=== PATIENT | male | born 1970 | race Caucasian/White ===

== ENCOUNTER 2017-08-02 09:13 | Inpatient (IN) | payer OTHER, MEDICAID ==
[2017-08-02] MEDS: morphine 4 MG/ML VIAL IV (09:39)
[2017-08-02] MEDS: ONDANSETRON 4 MG INJ IV (09:39)
[2017-08-02] MEDS: SOD CHLORIDE 0.9% 500 ML IV (09:39)
[2017-08-02 10:25] LABS: WHITE BLOOD COUNT 19.4 10^3/ul (4.8-10.8)
[2017-08-02 10:25] LABS: ABNORMAL IP MESSAGE 1; HEMATOCRIT 12.1 % (42.0-52.0); MEAN CORPUSCULAR HEMOGLOBIN 28.9 pg (29.0-33.0); MEAN CORPUSCULAR HGB CONC 32.2 g/dl (32.0-37.0); MEAN CORPUSCULAR VOLUME 89.6 fl (82.0-101.0); MEAN PLATELET VOLUME 11.3 fl (7.4-10.4); NUCLEATED RED BLOOD CELLS% 0.2 /100WBC (0.0-0.0); PLATELET COUNT 240 10^3/UL (140-415); POSITIVE DIFF @See below; RED BLOOD COUNT 1.35 10^6/ul (4.70-6.10); RED CELL DISTRIBUTION WIDTH 21.7 % (11.5-14.5)
[2017-08-02 10:33] LABS: ADD MAN DIFF? YES; HEMOGLOBIN 3.9 g/dl (14.0-18.0)
[2017-08-02] MEDS: SOD CHLORIDE 0.9% 250 ML IV (10:39)
[2017-08-02 10:42] LABS: INR 5.16; PROTIME 49.4 Sec (11.9-14.9); PT RATIO 3.9
[2017-08-02 10:43] LABS: PARTIAL THROMBOPLASTIN TIME 48.9 Sec (25.0-35.0)
[2017-08-02 10:44] LABS: LACTIC ACID 9.8 mmol/L (0.5-2.0)
[2017-08-02 10:56] LABS: ALANINE AMINOTRANSFERASE 57 IU/L (13-69); ALBUMIN/GLOBULIN RATIO 0.57; ALKALINE PHOSPHATASE 99 IU/L (42-121); ANION GAP 23 (8-16); ASPARTATE AMINO TRANSFERASE 196 IU/L (15-46); BILIRUBIN,INDIRECT 0.4 mg/dl (0-1.1); BILIRUBIN,TOTAL 0.4 mg/dl (0.2-1.3); BLOOD UREA NITROGEN 71 mg/dl (7-20); CALCIUM 7.9 mg/dl (8.4-10.2); CARBON DIOXIDE 13 mmol/L (21-31); CHLORIDE 107 mmol/L (97-110); CREATININE 4.76 mg/dl (0.61-1.24); GLUCOSE 111 mg/dl (70-220); POTASSIUM 5.3 mmol/L (3.5-5.1); SODIUM 138 mmol/L (135-144); TOTAL PROTEIN 5.5 g/dl (6.1-8.1)
[2017-08-02 10:59] LABS: ANISOCYTOSIS 2+ (0-0); BAND NEUTROPHILS #M 3.1 10^3/ul (0.0-0.6); BAND NEUTROPHILS % (M) 16 % (0-4); LYMPHOCYTES #M 2.1 10^3/ul (0.8-2.9); LYMPHOCYTES % (M) 11 % (15-51); PLATELET ESTIMATE NORMAL; POIKILOCYTOSIS 1+ (0-0); POLYCHROMASIA 1+ (0-0); SEG NEUT #M 14.8 10^3/ul (1.6-7.5); SEGMENTED NEUTROPHILS (M) % 73 % (39-77); SMUDGE%M 3 % (0-0); TARGET CELLS 1+ (0-0)
[2017-08-02] MEDS: LACTATED RINGER'S 2,480 ML IV (11:00)
[2017-08-02] MEDS: CEFEPIME 2GM/50 ML (PMX) 50 ML IVPB (11:02)
[2017-08-02 11:07] LABS: TROPONIN-I 0.043 ng/ml (0.00-0.12)
[2017-08-02] MEDS: VANCOMYCIN 1 GM (PMX) 250 ML IVPB (11:30)
[2017-08-02] MEDS: PHYTONADIONE 10 MG in DEXTROSE 5% 50 ML IVPB (11:41)
[2017-08-02 11:50] LABS: IMMEDIATE SPIN CROSSMATCH 1
[2017-08-02 12:33] LABS: LACTIC ACID 9.6 mmol/L (0.5-2.0)
[2017-08-02] MEDS: HUMAN PROTHROMBIN COMPLX IV (12:56)
[2017-08-02] MEDS: EVAC CONTAINER IV (12:56)
[2017-08-02] MEDS: IODIXANOL LOCM 100 ML BTL (13:43)
[2017-08-02] MEDS: SOD CHLORIDE 0.9% 100 ML (13:43)
[2017-08-02] MEDS: IOHEXOL 300MG/ML 150 ML BTL (13:43)
[2017-08-02 15:09] LABS: PATH REVIEW CH
[2017-08-02 17:30] LABS: ADD MAN DIFF? NO
[2017-08-02 17:31] LABS: WHITE BLOOD COUNT 18.3 10^3/ul (4.8-10.8)
[2017-08-02 17:31] LABS: ABNORMAL IP MESSAGE 1; HEMATOCRIT 17.7 % (42.0-52.0); MEAN CORPUSCULAR HEMOGLOBIN 29.5 pg (29.0-33.0); MEAN CORPUSCULAR HGB CONC 34.5 g/dl (32.0-37.0); MEAN CORPUSCULAR VOLUME 85.5 fl (82.0-101.0); NUCLEATED RED BLOOD CELLS% 0.2 /100WBC (0.0-0.0); PLATELET COUNT 178 10^3/UL (140-415); POSITIVE DIFF @See below; RED BLOOD COUNT 2.07 10^6/ul (4.70-6.10); RED CELL DISTRIBUTION WIDTH 18.5 % (11.5-14.5)
[2017-08-02 17:37] LABS: HEMOGLOBIN 6.1 g/dl (14.0-18.0)
[2017-08-02 18:09] LABS: ANISOCYTOSIS 1+ (0-0); BAND NEUTROPHILS #M 2.7 10^3/ul (0.0-0.6); BAND NEUTROPHILS % (M) 15 % (0-4); BURR CELLS 2+ (0-0); GIANT THROMBO% (M) 3 % (0-0); HYPOCHROMASIA 2+ (0-0); LYMPHOCYTES #M 1.4 10^3/ul (0.8-2.9); LYMPHOCYTES % (M) 8 % (15-51); MICROCYTOSIS 1+ (0-0); MONOCYTES % (M) 6 % (0-11); PLATELET ESTIMATE NORMAL; POIKILOCYTOSIS 2+ (0-0); SEG NEUT #M 13.5 10^3/ul (1.6-7.5); SEGMENTED NEUTROPHILS (M) % 71 % (39-77); SMUDGE%M 2 % (0-0)
[2017-08-02 21:26] LABS: ADD MAN DIFF? NO
[2017-08-02 21:29] LABS: WHITE BLOOD COUNT 20.4 10^3/ul (4.8-10.8)
[2017-08-02 21:29] LABS: ABNORMAL IP MESSAGE 1; BASOPHILS % 0.2 % (0.0-2.0); HEMATOCRIT 21.4 % (42.0-52.0); HEMOGLOBIN 7.3 g/dl (14.0-18.0); LYMPHOCYTES # 1.5 10^3/ul (0.8-2.9); LYMPHOCYTES % 7.1 % (15.0-51.0); MEAN CORPUSCULAR HGB CONC 34.1 g/dl (32.0-37.0); MEAN CORPUSCULAR VOLUME 84.9 fl (82.0-101.0); MEAN PLATELET VOLUME 10.7 fl (7.4-10.4); MONOCYTE # 1.9 10^3/ul (0.3-0.9); MONOCYTES % 9.1 % (0.0-11.0); NEUTROPHIL # 16.9 10^3/ul (1.6-7.5); NUCLEATED RED BLOOD CELLS% 0.2 /100WBC (0.0-0.0); PLATELET COUNT 215 10^3/UL (140-415); POSITIVE DIFF @See below; RED BLOOD COUNT 2.52 10^6/ul (4.70-6.10); RED CELL DISTRIBUTION WIDTH 18.6 % (11.5-14.5)
[2017-08-02 21:45] LABS: INR 1.67; PARTIAL THROMBOPLASTIN TIME 37.6 Sec (25.0-35.0); PT RATIO 1.6
[2017-08-02 21:46] LABS: CREATINE KINASE 98 IU/L (23-200)
[2017-08-02 21:48] LABS: PHOSPHORUS 6.9 mg/dl (2.5-4.9)
[2017-08-02 21:48] LABS: ALANINE AMINOTRANSFERASE 71 IU/L (13-69); ALBUMIN 2.3 g/dl (3.3-4.9); ALKALINE PHOSPHATASE 92 IU/L (42-121); ANION GAP 21 (8-16); ASPARTATE AMINO TRANSFERASE 239 IU/L (15-46); BILIRUBIN,INDIRECT 1.1 mg/dl (0-1.1); BILIRUBIN,TOTAL 1.9 mg/dl (0.2-1.3); BLOOD UREA NITROGEN 73 mg/dl (7-20); CARBON DIOXIDE 14 mmol/L (21-31); CHLORIDE 107 mmol/L (97-110); GLUCOSE 102 mg/dl (70-220); MAGNESIUM 2.1 mg/dl (1.7-2.5); POTASSIUM 5.5 mmol/L (3.5-5.1); SODIUM 136 mmol/L (135-144); TOTAL PROTEIN 6.1 g/dl (6.1-8.1)
[2017-08-02 21:59] LABS: CK INDEX 3.1; TROPONIN-I 0.045 ng/ml (0.00-0.12)
[2017-08-02 22:04] LABS: CK-MB 3.01 ng/ml (0.0-2.4)
[2017-08-02 22:29] LABS: HEPATITIS B SURFACE ANTIGEN NEGATIVE (NEGATIVE)
[2017-08-02 22:46] LABS: HEPATITIS B SURFACE ANTIBODY NEGATIVE (NEGATIVE)
[2017-08-02 22:47] LABS: HEPATITIS B CORE ANTIBODY NEGATIVE (NEGATIVE); HEPATITIS C VIRAL ANTIBODY NEGATIVE (NEGATIVE)
[2017-08-03] MEDS: ACETAMINOPHEN 1000MG/100ML IV 100 ML IVPB (01:17)
[2017-08-03] MEDS: ONDANSETRON 4 MG INJ IV ×3 (01:17→23:31)
[2017-08-03] MEDS: FENTAnyl 50 MCG/ML VIAL IV ×4 (01:29→23:26)
[2017-08-03 02:19] LABS: HEMOGLOBIN 9.1 g/dl (14.0-18.0)
[2017-08-03 03:51] LABS: ADD MAN DIFF? NO
[2017-08-03 04:13] LABS: CREATINE KINASE 75 IU/L (23-200)
[2017-08-03 04:15] LABS: ALANINE AMINOTRANSFERASE 75 IU/L (13-69); ALBUMIN 2.4 g/dl (3.3-4.9); ALKALINE PHOSPHATASE 97 IU/L (42-121); ANION GAP 21 (8-16); ASPARTATE AMINO TRANSFERASE 241 IU/L (15-46); BLOOD UREA NITROGEN 76 mg/dl (7-20); CALCIUM 8.2 mg/dl (8.4-10.2); CARBON DIOXIDE 16 mmol/L (21-31); CHLORIDE 106 mmol/L (97-110); CREATININE 4.71 mg/dl (0.61-1.24); GLUCOSE 116 mg/dl (70-220); MAGNESIUM 2.1 mg/dl (1.7-2.5); PHOSPHORUS 7.6 mg/dl (2.5-4.9); POTASSIUM 5.5 mmol/L (3.5-5.1); SODIUM 137 mmol/L (135-144); TOTAL PROTEIN 6.4 g/dl (6.1-8.1)
[2017-08-03 04:16] LABS: PT RATIO 1.6
[2017-08-03 04:17] LABS: PARTIAL THROMBOPLASTIN TIME 32.8 Sec (25.0-35.0)
[2017-08-03 04:22] LABS: BASOPHIL # 0.1 10^3/ul (0.0-0.1); BASOPHILS % 0.2 % (0.0-2.0); HEMATOCRIT 25.6 % (42.0-52.0); LYMPHOCYTES % 4.9 % (15.0-51.0); MEAN CORPUSCULAR HEMOGLOBIN 28.9 pg (29.0-33.0); MEAN CORPUSCULAR HGB CONC 35.2 g/dl (32.0-37.0); MEAN CORPUSCULAR VOLUME 82.3 fl (82.0-101.0); MEAN PLATELET VOLUME 10.5 fl (7.4-10.4); MONOCYTE # 1.5 10^3/ul (0.3-0.9); MONOCYTES % 7.1 % (0.0-11.0); NEUTROPHIL # 17.8 10^3/ul (1.6-7.5); NEUTROPHILS % 87.1 % (39.0-77.0); NUCLEATED RED BLOOD CELLS% 0.2 /100WBC (0.0-0.0); PLATELET COUNT 201 10^3/UL (140-415); RED BLOOD COUNT 3.11 10^6/ul (4.70-6.10); RED CELL DISTRIBUTION WIDTH 18.6 % (11.5-14.5)
[2017-08-03 04:22] LABS: WHITE BLOOD COUNT 20.5 10^3/ul (4.8-10.8)
[2017-08-03 04:23] LABS: LACTIC ACID 2.8 mmol/L (0.5-2.0)
[2017-08-03 04:25] LABS: CK INDEX 3.5; TROPONIN-I 0.048 ng/ml (0.00-0.12)
[2017-08-03 04:29] LABS: INR 1.68; PROTIME 20.1 Sec (11.9-14.9)
[2017-08-03 04:30] LABS: CK-MB 2.64 ng/ml (0.0-2.4)
[2017-08-03] MEDS ORDERED: VANCOMYCIN IV PER PHARMACY XX (12:00)
[2017-08-03] MEDS: CEFEPIME 1GM/50 ML (PMX) 50 ML IVPB (13:02)
[2017-08-03] MEDS: FAMOTIDINE 20 MG INJ IV (13:02)
[2017-08-03] MEDS: LACTATED RINGER'S 1,000 ML IV ×2 (13:03→23:37)
[2017-08-03 13:23] LABS: HEMATOCRIT 29.4 % (42.0-52.0); HEMOGLOBIN 10.1 g/dl (14.0-18.0)
[2017-08-03 13:52] LABS: LACTIC ACID 2.6 mmol/L (0.5-2.0)
[2017-08-03 15:35] LABS: HAAIG REFLEX REFLEX FILED
[2017-08-03] MEDS: DESMOPRESSIN 20 MCG in SOD CHLORIDE 0.9% 50 ML IVPB (15:35)
[2017-08-03 16:02] LABS: PLATELET COUNT 206 10^3/UL (140-415)
[2017-08-03 16:15] LABS: HEPATITIS B SURFACE ANTIGEN NEGATIVE (NEGATIVE)
[2017-08-03 16:33] LABS: HEPATITIS B CORE ANTIBODY NEGATIVE (NEGATIVE); HEPATITIS C VIRAL ANTIBODY NEGATIVE (NEGATIVE)
[2017-08-03 16:34] LABS: INR 1.48; PROTIME 18.2 Sec (11.9-14.9); PT RATIO 1.4
[2017-08-03 16:35] LABS: ADD UMIC YES; PARTIAL THROMBOPLASTIN TIME 36.6 Sec (25.0-35.0); UR ASCORBIC ACID NEGATIVE (NEGATIVE); UR BILIRUBIN (Dip) NEGATIVE (NEGATIVE); UR BLOOD (Dip) 1+ mg/dL (NEGATIVE); UR CLARITY SLIGHTLY CLOUDY (CLEAR); UR COLOR YELLOW (YELLOW); UR GLUCOSE (Dip) NEGATIVE (NEGATIVE); UR KETONES (Dip) NEGATIVE (NEGATIVE); UR LEUKOCYTE ESTERASE (Dip) NEGATIVE Leu/ul (NEGATIVE); UR MUCUS FEW /HPF (NONE SEEN); UR NITRITE (Dip) NEGATIVE (NEGATIVE); UR RBC 1 /HPF (0-5); UR SPECIFIC GRAVITY (Dip) 1.021 (1.003-1.030); UR TOTAL PROTEIN (Dip) NEGATIVE (NEGATIVE); UR UROBILINOGEN (Dip) NEGATIVE (NEGATIVE); UR WBC 3 /HPF (0-5)
[2017-08-03 16:36] LABS: THROMBIN TIME 19.3 SEC (13.8-19.1)
[2017-08-03 16:41] LABS: CREATININE,URINE RANDOM 96.54 mg/dl (20-370)
[2017-08-03 16:45] LABS: LACTIC ACID 2.5 mmol/L (0.5-2.0)
[2017-08-03 16:46] LABS: SODIUM,URINE RANDOM < 5 mmol/L (30-90)
[2017-08-03 16:59] LABS: PROTEIN/CREAT RATIO 0.16 RATIO
[2017-08-03 17:20] LABS: D-DIMER > 10000.00 ng/ml (<460)
[2017-08-03 17:24] LABS: FIBRIN SPLIT PRODUCT >10 and <40 ug/ml (<10)
[2017-08-03 17:27] LABS: HEMATOCRIT 28.1 % (42.0-52.0); HEMOGLOBIN 9.8 g/dl (14.0-18.0)
[2017-08-03 17:50] LABS: INR 1.42; PROTIME 17.6 Sec (11.9-14.9); PT RATIO 1.4
[2017-08-03 19:09] LABS: OSMOLALITY,URINE 355 mOsm/kg (250-1200)
[2017-08-03 19:39] LABS: HEMATOCRIT 29.3 % (42.0-52.0)
[2017-08-03] MEDS ORDERED: SOD CHLORIDE 0.9% 500 ML IV (19:55)
[2017-08-03] MEDS: SOD CHLORIDE 0.9% 250 ML IV* ×2 (20:00→23:30)
[2017-08-03 20:06] LABS: LACTIC ACID 3.1 mmol/L (0.5-2.0)
[2017-08-03] MEDS: NA BICARBONATE 8.4% 50 ML SYG IV (21:26)
[2017-08-03] MEDS: ALBUMIN HUMAN 25% 50 ML IV (21:28)
[2017-08-03 22:29] LABS: HEPATITIS B SURFACE ANTIBODY NEGATIVE (NEGATIVE)
[2017-08-03 23:09] LABS: IMMEDIATE SPIN CROSSMATCH 1 6
[2017-08-04 00:27] LABS: HEMOGLOBIN 9.3 g/dl (14.0-18.0)
[2017-08-04 00:31] LABS: LACTIC ACID 2.2 mmol/L (0.5-2.0)
[2017-08-04 01:06] LABS: HEPATITIS B SURFACE ANTIGEN NEGATIVE (NEGATIVE)
[2017-08-04] MEDS: ALBUMIN HUMAN 25% 50 ML IV ×2 (03:45→11:46)
[2017-08-04 04:57] LABS: ADD MAN DIFF? NO
[2017-08-04 05:01] LABS: WHITE BLOOD COUNT 15.5 10^3/ul (4.8-10.8)
[2017-08-04 05:01] LABS: ABNORMAL IP MESSAGE 1; BASOPHILS % 0.1 % (0.0-2.0); HEMATOCRIT 25.5 % (42.0-52.0); HEMOGLOBIN 8.8 g/dl (14.0-18.0); LYMPHOCYTES % 6.2 % (15.0-51.0); MEAN CORPUSCULAR HGB CONC 34.5 g/dl (32.0-37.0); MEAN CORPUSCULAR VOLUME 84.2 fl (82.0-101.0); MEAN PLATELET VOLUME 10.6 fl (7.4-10.4); MONOCYTE # 1.5 10^3/ul (0.3-0.9); MONOCYTES % 9.8 % (0.0-11.0); NEUTROPHIL # 12.9 10^3/ul (1.6-7.5); NEUTROPHILS % 83.3 % (39.0-77.0); NUCLEATED RED BLOOD CELLS # 0.1 10^3/ul (0.0-0.0); NUCLEATED RED BLOOD CELLS% 0.3 /100WBC (0.0-0.0); PLATELET COUNT 194 10^3/UL (140-415); POSITIVE DIFF @See below; RED BLOOD COUNT 3.03 10^6/ul (4.70-6.10); RED CELL DISTRIBUTION WIDTH 18.8 % (11.5-14.5)
[2017-08-04 05:21] LABS: LACTIC ACID 1.8 mmol/L (0.5-2.0)
[2017-08-04 05:26] LABS: VANCOMYCIN,RANDOM 9.3 ug/ml
[2017-08-04 05:29] LABS: ALANINE AMINOTRANSFERASE 70 IU/L (13-69); ALBUMIN 2.9 g/dl (3.3-4.9); ALBUMIN/GLOBULIN RATIO 0.74; ALKALINE PHOSPHATASE 100 IU/L (42-121); ANION GAP 19 (8-16); ASPARTATE AMINO TRANSFERASE 152 IU/L (15-46); BILIRUBIN,INDIRECT 0.7 mg/dl (0-1.1); BILIRUBIN,TOTAL 1.2 mg/dl (0.2-1.3); BLOOD UREA NITROGEN 86 mg/dl (7-20); CALCIUM 8.4 mg/dl (8.4-10.2); CARBON DIOXIDE 18 mmol/L (21-31); CHLORIDE 108 mmol/L (97-110); CREATININE 5.27 mg/dl (0.61-1.24); GLUCOSE 120 mg/dl (70-220); POTASSIUM 5.2 mmol/L (3.5-5.1); SODIUM 140 mmol/L (135-144); TOTAL PROTEIN 6.8 g/dl (6.1-8.1)
[2017-08-04] MEDS: BUMETANIDE 1 MG INJ IV ×2 (05:31→18:00)
[2017-08-04 05:35] LABS: PHOSPHORUS 7.7 mg/dl (2.5-4.9)
[2017-08-04 05:42] LABS: INR 1.35; PROTIME 16.9 Sec (11.9-14.9); PT RATIO 1.3
[2017-08-04 05:46] LABS: MAGNESIUM 2.2 mg/dl (1.7-2.5)
[2017-08-04] MEDS: LEVOTHYROXINE 75 MCG TAB PO (06:23)
[2017-08-04] MEDS: ONDANSETRON 4 MG INJ IV (06:36)
[2017-08-04] MEDS: LACTATED RINGER'S 1,000 ML IV ×3 (08:00→21:43)
[2017-08-04 09:06] LABS: LACTIC ACID 1.6 mmol/L (0.5-2.0)
[2017-08-04] MEDS ORDERED: HEPARIN 1000 UNITS/ML 10 ML INJ ×2 (09:57→23:17)
[2017-08-04] MEDS: VANCOMYCIN 1 GM 250 ML IVPB (10:40)
[2017-08-04] MEDS: FAMOTIDINE 20 MG INJ IV (10:44)
[2017-08-04] MEDS: CEFEPIME 1GM/50 ML (PMX) 50 ML IVPB (12:22)
[2017-08-04 13:15] LABS: HEMATOCRIT 25.7 % (42.0-52.0); HEMOGLOBIN 8.8 g/dl (14.0-18.0)
[2017-08-04 18:55] LABS: HEMATOCRIT 25.4 % (42.0-52.0); HEMOGLOBIN 8.6 g/dl (14.0-18.0)
[2017-08-04] MEDS: LIDOCAINE 1% (MPF) 5 ML VIAL (20:45)
[2017-08-04] MEDS ORDERED: HEPARIN 1000 UNITS/ML 10 ML INJ CATHETER (23:30)
[2017-08-04] MEDS: HEPARIN 1000 UNITS/ML 10 ML INJ CATHETER (23:32)
[2017-08-05] MEDS: BUMETANIDE 1 MG INJ IV (05:06)
[2017-08-05 05:45] LABS: ADD MAN DIFF? NO
[2017-08-05 05:51] LABS: EOSINOPHILS % 0.2 % (0.0-7.0); HEMATOCRIT 24.2 % (42.0-52.0); HEMOGLOBIN 8.4 g/dl (14.0-18.0); LYMPHOCYTES # 1.2 10^3/ul (0.8-2.9); LYMPHOCYTES % 8.9 % (15.0-51.0); MEAN CORPUSCULAR HEMOGLOBIN 29.5 pg (29.0-33.0); MEAN CORPUSCULAR HGB CONC 34.7 g/dl (32.0-37.0); MEAN CORPUSCULAR VOLUME 84.9 fl (82.0-101.0); MEAN PLATELET VOLUME 10.4 fl (7.4-10.4); MONOCYTE # 1.3 10^3/ul (0.3-0.9); MONOCYTES % 9.9 % (0.0-11.0); NEUTROPHIL # 10.4 10^3/ul (1.6-7.5); NEUTROPHILS % 80.5 % (39.0-77.0); PLATELET COUNT 154 10^3/UL (140-415); RED BLOOD COUNT 2.85 10^6/ul (4.70-6.10); RED CELL DISTRIBUTION WIDTH 19.9 % (11.5-14.5)
[2017-08-05] MEDS: LEVOTHYROXINE 75 MCG TAB PO (06:20)
[2017-08-05] MEDS: LACTATED RINGER'S 1,000 ML IV (06:34)
[2017-08-05 06:38] LABS: ALANINE AMINOTRANSFERASE 56 IU/L (13-69); ALBUMIN 2.5 g/dl (3.3-4.9); ALBUMIN/GLOBULIN RATIO 0.69; ALKALINE PHOSPHATASE 94 IU/L (42-121); ANION GAP 15 (8-16); ASPARTATE AMINO TRANSFERASE 100 IU/L (15-46); BILIRUBIN,TOTAL 1.4 mg/dl (0.2-1.3); BLOOD UREA NITROGEN 67 mg/dl (7-20); CALCIUM 8.1 mg/dl (8.4-10.2); CARBON DIOXIDE 25 mmol/L (21-31); CHLORIDE 105 mmol/L (97-110); CREATININE 4.12 mg/dl (0.61-1.24); GLUCOSE 88 mg/dl (70-220); POTASSIUM 3.9 mmol/L (3.5-5.1); SODIUM 141 mmol/L (135-144); TOTAL PROTEIN 6.1 g/dl (6.1-8.1)
[2017-08-05] MEDS: FAMOTIDINE 20 MG INJ IV (09:09)
[2017-08-05 17:21] LABS: PHOSPHORUS 5.8 mg/dl (2.5-4.9)
[2017-08-05] MEDS: MANNITOL 25% 50 ML INJ IV* (21:38)
[2017-08-06] MEDS: ONDANSETRON 4 MG INJ IV (02:21)
[2017-08-06 05:47] LABS: ADD MAN DIFF? NO
[2017-08-06 05:58] LABS: BASOPHILS % 0.1 % (0.0-2.0); EOSINOPHILS # 0.1 10^3/ul (0.0-0.5); EOSINOPHILS % 0.9 % (0.0-7.0); HEMATOCRIT 29.3 % (42.0-52.0); HEMOGLOBIN 9.9 g/dl (14.0-18.0); LYMPHOCYTES # 0.8 10^3/ul (0.8-2.9); MEAN CORPUSCULAR HEMOGLOBIN 29.5 pg (29.0-33.0); MEAN CORPUSCULAR HGB CONC 33.8 g/dl (32.0-37.0); MEAN CORPUSCULAR VOLUME 87.2 fl (82.0-101.0); MEAN PLATELET VOLUME 10.7 fl (7.4-10.4); MONOCYTE # 1.4 10^3/ul (0.3-0.9); MONOCYTES % 10.6 % (0.0-11.0); NEUTROPHIL # 11.1 10^3/ul (1.6-7.5); NEUTROPHILS % 81.8 % (39.0-77.0); PLATELET COUNT 159 10^3/UL (140-415); RED BLOOD COUNT 3.36 10^6/ul (4.70-6.10); RED CELL DISTRIBUTION WIDTH 20.3 % (11.5-14.5)
[2017-08-06 05:58] LABS: WHITE BLOOD COUNT 13.5 10^3/ul (4.8-10.8)
[2017-08-06 06:08] LABS: PROTIME 17.4 Sec (11.9-14.9); PT RATIO 1.4
[2017-08-06 06:09] LABS: PARTIAL THROMBOPLASTIN TIME 37.9 Sec (25.0-35.0)
[2017-08-06 06:27] LABS: ALANINE AMINOTRANSFERASE 55 IU/L (13-69); ALBUMIN 2.5 g/dl (3.3-4.9); ALBUMIN/GLOBULIN RATIO 0.62; ALKALINE PHOSPHATASE 103 IU/L (42-121); ANION GAP 16 (8-16); ASPARTATE AMINO TRANSFERASE 110 IU/L (15-46); BILIRUBIN,INDIRECT 1.6 mg/dl (0-1.1); BILIRUBIN,TOTAL 2.3 mg/dl (0.2-1.3); BLOOD UREA NITROGEN 52 mg/dl (7-20); CARBON DIOXIDE 25 mmol/L (21-31); CHLORIDE 103 mmol/L (97-110); GLUCOSE 99 mg/dl (70-220); POTASSIUM 3.7 mmol/L (3.5-5.1); SODIUM 140 mmol/L (135-144); TOTAL PROTEIN 6.5 g/dl (6.1-8.1)
[2017-08-06] MEDS: LEVOTHYROXINE 75 MCG TAB PO (06:55)
[2017-08-06] MEDS: AMIODARONE 200 MG TAB PO (09:00)
[2017-08-06 10:17] LABS: PHOSPHORUS 4.4 mg/dl (2.5-4.9)
[2017-08-06] MEDS: SPIRONOLACTONE 25 MG TAB PO (12:46)
[2017-08-06] MEDS: MIDODRINE 5 MG TAB NGT ×2 (14:54→18:14)
[2017-08-06 17:21] LABS: PTH CALCIUM 9.6 mg/dL (8.6-10.3)
[2017-08-06] MEDS: FUROSEMIDE 40 MG TAB PO (18:13)
[2017-08-06] MEDS ORDERED: SODIUM CHLORIDE 0.9% 1L BAG IV (19:00)
[2017-08-06] MEDS ORDERED: ALBUMIN HUMAN 25% 50 ML IV (19:00)
[2017-08-07 05:41] LABS: INR 1.42; PROTIME 17.6 Sec (11.9-14.9); PT RATIO 1.4
[2017-08-07 05:42] LABS: PARTIAL THROMBOPLASTIN TIME 36.2 Sec (25.0-35.0)
[2017-08-07] MEDS: LEVOTHYROXINE 75 MCG TAB PO (06:36)
[2017-08-07] MEDS: FUROSEMIDE 40 MG TAB PO ×2 (06:36→18:06)
[2017-08-07 07:46] LABS: PTH INTACT 66 pg/mL (14-64)
[2017-08-07] MEDS: AMIODARONE 200 MG TAB PO (09:08)
[2017-08-07] MEDS: MIDODRINE 5 MG TAB NGT ×3 (09:08→17:02)
[2017-08-07] MEDS: SPIRONOLACTONE 25 MG TAB PO (09:09)
[2017-08-07 11:40] LABS: ANION GAP 15 (8-16); BLOOD UREA NITROGEN 55 mg/dl (7-20); CALCIUM 7.7 mg/dl (8.4-10.2); CARBON DIOXIDE 25 mmol/L (21-31); CHLORIDE 103 mmol/L (97-110); GLUCOSE 83 mg/dl (70-220); POTASSIUM 3.8 mmol/L (3.5-5.1); SODIUM 139 mmol/L (135-144)
[2017-08-07] MEDS: HEPARIN 1000 UNITS/ML 10 ML INJ CATHETER (15:50)
[2017-08-08 05:56] LABS: ADD MAN DIFF? NO
[2017-08-08 06:12] LABS: ABNORMAL IP MESSAGE 1; BASOPHILS % 0.1 % (0.0-2.0); EOSINOPHILS # 0.2 10^3/ul (0.0-0.5); EOSINOPHILS % 1.4 % (0.0-7.0); HEMATOCRIT 29.7 % (42.0-52.0); LYMPHOCYTES # 1.1 10^3/ul (0.8-2.9); LYMPHOCYTES % 6.9 % (15.0-51.0); MEAN CORPUSCULAR HEMOGLOBIN 29.7 pg (29.0-33.0); MEAN CORPUSCULAR HGB CONC 33.7 g/dl (32.0-37.0); MEAN CORPUSCULAR VOLUME 88.1 fl (82.0-101.0); MEAN PLATELET VOLUME 10.6 fl (7.4-10.4); MONOCYTE # 1.6 10^3/ul (0.3-0.9); MONOCYTES % 10.1 % (0.0-11.0); NEUTROPHIL # 12.9 10^3/ul (1.6-7.5); NEUTROPHILS % 80.9 % (39.0-77.0); PLATELET COUNT 176 10^3/UL (140-415); POSITIVE DIFF @See below; RED BLOOD COUNT 3.37 10^6/ul (4.70-6.10); RED CELL DISTRIBUTION WIDTH 19.9 % (11.5-14.5)
[2017-08-08] MEDS: LEVOTHYROXINE 75 MCG TAB PO (06:30)
[2017-08-08] MEDS: FUROSEMIDE 40 MG TAB PO ×2 (06:31→17:14)
[2017-08-08 06:47] LABS: ANION GAP 15 (8-16); BLOOD UREA NITROGEN 44 mg/dl (7-20); CALCIUM 8.1 mg/dl (8.4-10.2); CARBON DIOXIDE 23 mmol/L (21-31); CHLORIDE 105 mmol/L (97-110); CREATININE 3.18 mg/dl (0.61-1.24); GLUCOSE 80 mg/dl (70-220); MAGNESIUM 2.1 mg/dl (1.7-2.5); POTASSIUM 4.2 mmol/L (3.5-5.1); SODIUM 139 mmol/L (135-144)
[2017-08-08 07:00] LABS: INR 1.38; PROTIME 17.2 Sec (11.9-14.9); PT RATIO 1.3
[2017-08-08 07:01] LABS: PARTIAL THROMBOPLASTIN TIME 39.1 Sec (25.0-35.0)
[2017-08-08] MEDS: SPIRONOLACTONE 25 MG TAB PO (08:57)
[2017-08-08] MEDS: AMIODARONE 200 MG TAB PO (08:58)
[2017-08-08] MEDS: MIDODRINE 5 MG TAB NGT ×3 (10:52→17:14)
[2017-08-08] MEDS: DIATR MEGLU/DIATRIZOATE SODIUM 120 ML BTL (11:13)
[2017-08-08 18:36] LABS: HAPTOGLOBIN 106 mg/dL (43-212)
[2017-08-08] MEDS ORDERED: ALBUMIN HUMAN 25% 50 ML IV (19:30)
[2017-08-08] MEDS ORDERED: SODIUM CHLORIDE 0.9% 1L BAG IV (19:30)
[2017-08-08] MEDS: ONDANSETRON 4 MG INJ IV (23:14)
[2017-08-08] MEDS: PANTOPRAZOLE 40 MG INJ IV (23:53)
[2017-08-09 01:02] LABS: ADD MAN DIFF? NO
[2017-08-09 01:12] LABS: ABNORMAL IP MESSAGE 1; BASOPHILS % 0.1 % (0.0-2.0); HEMOGLOBIN 9.1 g/dl (14.0-18.0); LYMPHOCYTES # 1.1 10^3/ul (0.8-2.9); LYMPHOCYTES % 5.5 % (15.0-51.0); MEAN CORPUSCULAR HEMOGLOBIN 28.6 pg (29.0-33.0); MEAN CORPUSCULAR HGB CONC 32.5 g/dl (32.0-37.0); MEAN CORPUSCULAR VOLUME 88.1 fl (82.0-101.0); MEAN PLATELET VOLUME 10.8 fl (7.4-10.4); MONOCYTE # 1.7 10^3/ul (0.3-0.9); MONOCYTES % 8.2 % (0.0-11.0); NEUTROPHIL # 17.2 10^3/ul (1.6-7.5); NEUTROPHILS % 85.5 % (39.0-77.0); PLATELET COUNT 183 10^3/UL (140-415); POSITIVE DIFF @See below; RED BLOOD COUNT 3.18 10^6/ul (4.70-6.10); RED CELL DISTRIBUTION WIDTH 20.3 % (11.5-14.5)
[2017-08-09 01:12] LABS: WHITE BLOOD COUNT 20.1 10^3/ul (4.8-10.8)
[2017-08-09 01:25] LABS: INR 1.54; PROTIME 18.8 Sec (11.9-14.9); PT RATIO 1.5
[2017-08-09 01:26] LABS: PARTIAL THROMBOPLASTIN TIME 35.7 Sec (25.0-35.0)
[2017-08-09 05:38] LABS: ABNORMAL IP MESSAGE 1; ADD MAN DIFF? NO; BASOPHILS % 0.1 % (0.0-2.0); EOSINOPHILS % 0.1 % (0.0-7.0); HEMATOCRIT 27.4 % (42.0-52.0); LYMPHOCYTES # 1.2 10^3/ul (0.8-2.9); MEAN CORPUSCULAR HEMOGLOBIN 29.2 pg (29.0-33.0); MEAN CORPUSCULAR HGB CONC 32.8 g/dl (32.0-37.0); MEAN PLATELET VOLUME 11.7 fl (7.4-10.4); MONOCYTE # 1.7 10^3/ul (0.3-0.9); MONOCYTES % 8.3 % (0.0-11.0); NEUTROPHIL # 16.8 10^3/ul (1.6-7.5); NEUTROPHILS % 84.5 % (39.0-77.0); PLATELET COUNT 149 10^3/UL (140-415); POSITIVE DIFF @See below; RED BLOOD COUNT 3.08 10^6/ul (4.70-6.10); RED CELL DISTRIBUTION WIDTH 20.3 % (11.5-14.5)
[2017-08-09 05:38] LABS: WHITE BLOOD COUNT 19.9 10^3/ul (4.8-10.8)
[2017-08-09 06:00] LABS: INR 1.61; PROTIME 19.5 Sec (11.9-14.9); PT RATIO 1.5
[2017-08-09] MEDS: PANTOPRAZOLE 40 MG INJ IV ×2 (06:01→17:29)
[2017-08-09] MEDS: LEVOTHYROXINE 75 MCG TAB PO (06:01)
[2017-08-09] MEDS: FUROSEMIDE 40 MG TAB PO ×2 (06:01→20:09)
[2017-08-09] MEDS ORDERED: VITAMIN A & D 5 GM OINT PACKET TOP (06:08)
[2017-08-09 06:15] LABS: ANION GAP 21 (8-16); BLOOD UREA NITROGEN 66 mg/dl (7-20); CALCIUM 8.1 mg/dl (8.4-10.2); CARBON DIOXIDE 21 mmol/L (21-31); CHLORIDE 107 mmol/L (97-110); CREATININE 4.01 mg/dl (0.61-1.24); GLUCOSE 117 mg/dl (70-220); MAGNESIUM 2.3 mg/dl (1.7-2.5); PHOSPHORUS 4.5 mg/dl (2.5-4.9); POTASSIUM 4.6 mmol/L (3.5-5.1); SODIUM 144 mmol/L (135-144)
[2017-08-09] MEDS: SPIRONOLACTONE 25 MG TAB PO (08:43)
[2017-08-09] MEDS: AMIODARONE 200 MG TAB PO (08:43)
[2017-08-09] MEDS: MIDODRINE 5 MG TAB NGT ×3 (08:43→16:57)
[2017-08-09] MEDS ORDERED: LIDOCAINE 1% (MPF) 5 ML VIAL (16:45)
[2017-08-09 17:01] LABS: FLD PMN% 39.3 %; FLD RBC 244000 /uL; FLD WBC 884 /cmm
[2017-08-09 17:27] LABS: FLD CLARITY BLOODY; FLD COLOR RED
[2017-08-09 17:27] LABS: FLD TYPE ASCITES
[2017-08-09 17:28] LABS: FLD MN% 60.7 %
[2017-08-09] MEDS: ALBUMIN HUMAN 25% 50 ML IV (23:23)
[2017-08-10] MEDS: FUROSEMIDE 40 MG TAB PO ×2 (05:16→17:56)
[2017-08-10] MEDS: LEVOTHYROXINE 75 MCG TAB PO (05:16)
[2017-08-10] MEDS: PANTOPRAZOLE 40 MG INJ IV ×2 (05:16→18:09)
[2017-08-10 05:40] LABS: INR 1.61; PROTIME 19.5 Sec (11.9-14.9); PT RATIO 1.5
[2017-08-10 05:41] LABS: PARTIAL THROMBOPLASTIN TIME 38.4 Sec (25.0-35.0)
[2017-08-10] MEDS: ASPIRIN 325 MG TAB PO (08:51)
[2017-08-10] MEDS: AMIODARONE 200 MG TAB PO (08:51)
[2017-08-10] MEDS: SPIRONOLACTONE 25 MG TAB PO (09:00)
[2017-08-10] MEDS: MIDODRINE 5 MG TAB NGT ×3 (09:24→18:09)
[2017-08-10] MEDS: MULTIVIT/CA CARB/B CMPLX/FA TAB PO (15:00)
[2017-08-10] MEDS: ALBUMIN HUMAN 25% 50 ML IV ×2 (18:00→18:53)
[2017-08-10] MEDS: MIDODRINE 5 MG TAB PO (20:42)
[2017-08-10] MEDS: ALBUMIN HUMAN 25% 100 ML IV (22:09)
[2017-08-10] MEDS: CALCIUM/VITAMIN D (250/125) TAB PO (22:11)
[2017-08-11] MEDS: PANTOPRAZOLE 40 MG INJ IV ×2 (05:42→18:28)
[2017-08-11] MEDS: ALBUMIN HUMAN 25% 100 ML IV (05:42)
[2017-08-11] MEDS: LEVOTHYROXINE 75 MCG TAB PO (05:43)
[2017-08-11] MEDS: FUROSEMIDE 40 MG TAB PO ×2 (05:43→18:00)
[2017-08-11 07:06] LABS: INR 1.63; PROTIME 19.7 Sec (11.9-14.9); PT RATIO 1.5
[2017-08-11 07:12] LABS: PARTIAL THROMBOPLASTIN TIME 40.4 Sec (25.0-35.0)
[2017-08-11] MEDS: SPIRONOLACTONE 25 MG TAB PO (08:55)
[2017-08-11] MEDS: ASPIRIN 325 MG TAB PO (08:55)
[2017-08-11] MEDS: CALCIUM/VITAMIN D (250/125) TAB PO ×2 (08:56→21:00)
[2017-08-11] MEDS: AMIODARONE 200 MG TAB PO (08:57)
[2017-08-11] MEDS: MULTIVIT/CA CARB/B CMPLX/FA TAB PO (08:57)
[2017-08-11] MEDS: MIDODRINE 5 MG TAB PO ×3 (09:08→17:00)
[2017-08-11 13:25] LABS: ADD MAN DIFF? NO
[2017-08-11 13:28] LABS: WHITE BLOOD COUNT 18.2 10^3/ul (4.8-10.8)
[2017-08-11 13:28] LABS: BASOPHILS % 0.2 % (0.0-2.0); EOSINOPHILS # 0.1 10^3/ul (0.0-0.5); EOSINOPHILS % 0.6 % (0.0-7.0); HEMOGLOBIN 8.9 g/dl (14.0-18.0); LYMPHOCYTES % 5.5 % (15.0-51.0); MEAN CORPUSCULAR HEMOGLOBIN 29.6 pg (29.0-33.0); MEAN CORPUSCULAR HGB CONC 34.2 g/dl (32.0-37.0); MEAN CORPUSCULAR VOLUME 86.4 fl (82.0-101.0); MEAN PLATELET VOLUME 10.5 fl (7.4-10.4); MONOCYTES % 5.3 % (0.0-11.0); NEUTROPHIL # 15.9 10^3/ul (1.6-7.5); NEUTROPHILS % 87.6 % (39.0-77.0); PLATELET COUNT 161 10^3/UL (140-415); RED BLOOD COUNT 3.01 10^6/ul (4.70-6.10); RED CELL DISTRIBUTION WIDTH 20.7 % (11.5-14.5)
[2017-08-11 15:30] LABS: ANION GAP 17 (8-16); BLOOD UREA NITROGEN 76 mg/dl (7-20); CALCIUM 8.3 mg/dl (8.4-10.2); CARBON DIOXIDE 23 mmol/L (21-31); CHLORIDE 104 mmol/L (97-110); CREATININE 4.29 mg/dl (0.61-1.24); GLUCOSE 123 mg/dl (70-220); POTASSIUM 4.2 mmol/L (3.5-5.1); SODIUM 140 mmol/L (135-144)
[2017-08-11 15:38] LABS: AMMONIA 265 umol/l (9-30)
[2017-08-11] MEDS: LACTULOSE 30ML CUP PO (17:16)
[2017-08-11] MEDS ORDERED: LACTULOSE 30ML CUP PR (18:00)
[2017-08-11] MEDS: LACTULOSE ENEMA 1,000 ML BTL PR (18:28)
[2017-08-11] MEDS ORDERED: VANCOMYCIN IV PER PHARMACY XX (18:30)
[2017-08-11] MEDS: CEFTRIAXONE 1 GM/50 ML (PMX) 50 ML IVPB (18:40)
[2017-08-11] MEDS: VANCOMYCIN 1 GM 250 ML IVPB (19:43)
[2017-08-11] MEDS: RIFAXIMIN 550 MG TAB PO (21:00)
[2017-08-11 23:54] LABS: AADO2 Arterial 36.8 mmHg (7.0-24.0); Allen Test ACCEPTAB; Arterial Base Excess 3.7 mmol/L (-3.0-3); Arterial Blood Gas Oxygen Sat 96.8 mmHG (95.0-98.0); Arterial COHb 0.5 % (0.0-3.0); Arterial HCO3 25.1 mmol/L (22.0-26.0); Arterial MetHb 0.3 % (0.0-1.5); Arterial Total Hemglobin 9.8 g/dl (12.0-18.0); Arterial pCO2 27.3 mmhg (35-45); MODE ROOM AIR; Site Left Radial
[2017-08-12] MEDS ORDERED: ALBUMIN HUMAN 5% 250 ML IV
[2017-08-12] MEDS: ALBUMIN HUMAN 25% 100 ML IV ×3 (00:15→21:47)
[2017-08-12] MEDS: LACTULOSE 30ML CUP NGT (00:21)
[2017-08-12] MEDS: PANTOPRAZOLE 40 MG INJ IV ×2 (05:18→17:58)
[2017-08-12] MEDS: FUROSEMIDE 40 MG TAB PO (06:00)
[2017-08-12] MEDS: LACTULOSE 30ML CUP PO ×4 (06:04→17:59)
[2017-08-12] MEDS: LEVOTHYROXINE 75 MCG TAB PO (06:04)
[2017-08-12] MEDS: LACTULOSE ENEMA 1,000 ML BTL PR ×3 (06:09→12:14)
[2017-08-12 06:49] LABS: ADD MAN DIFF? NO
[2017-08-12 06:53] LABS: BASOPHILS % 0.2 % (0.0-2.0); EOSINOPHILS % 0.1 % (0.0-7.0); HEMATOCRIT 23.1 % (42.0-52.0); LYMPHOCYTES # 0.8 10^3/ul (0.8-2.9); LYMPHOCYTES % 4.2 % (15.0-51.0); MEAN CORPUSCULAR HEMOGLOBIN 29.6 pg (29.0-33.0); MEAN CORPUSCULAR HGB CONC 34.6 g/dl (32.0-37.0); MEAN CORPUSCULAR VOLUME 85.6 fl (82.0-101.0); MEAN PLATELET VOLUME 11.2 fl (7.4-10.4); MONOCYTE # 1.4 10^3/ul (0.3-0.9); MONOCYTES % 7.2 % (0.0-11.0); NEUTROPHIL # 17.1 10^3/ul (1.6-7.5); NEUTROPHILS % 87.7 % (39.0-77.0); PLATELET COUNT 149 10^3/UL (140-415); RED CELL DISTRIBUTION WIDTH 21.2 % (11.5-14.5)
[2017-08-12 06:53] LABS: WHITE BLOOD COUNT 19.5 10^3/ul (4.8-10.8)
[2017-08-12 07:14] LABS: INR 1.73; PROTIME 20.6 Sec (11.9-14.9); PT RATIO 1.6
[2017-08-12 07:15] LABS: PARTIAL THROMBOPLASTIN TIME 43.5 Sec (25.0-35.0)
[2017-08-12 07:30] LABS: ANION GAP 18 (8-16); BLOOD UREA NITROGEN 54 mg/dl (7-20); CALCIUM 8.2 mg/dl (8.4-10.2); CARBON DIOXIDE 23 mmol/L (21-31); CHLORIDE 105 mmol/L (97-110); GLUCOSE 106 mg/dl (70-220); POTASSIUM 3.8 mmol/L (3.5-5.1); SODIUM 142 mmol/L (135-144)
[2017-08-12] MEDS: ASPIRIN 325 MG TAB PO (08:55)
[2017-08-12] MEDS: MIDODRINE 5 MG TAB PO ×3 (08:55→18:00)
[2017-08-12] MEDS: RIFAXIMIN 550 MG TAB PO ×2 (08:56→21:47)
[2017-08-12] MEDS: CALCIUM/VITAMIN D (250/125) TAB PO ×2 (08:56→21:47)
[2017-08-12] MEDS: MULTIVIT/CA CARB/B CMPLX/FA TAB PO (08:56)
[2017-08-12] MEDS: SPIRONOLACTONE 25 MG TAB PO (08:57)
[2017-08-12] MEDS: AMIODARONE 200 MG TAB PO (09:00)
[2017-08-12 12:31] LABS: AMMONIA 90 umol/l (9-30)
[2017-08-12] MEDS: LACTULOSE 30ML CUP GTB (13:49)
[2017-08-12] MEDS: SOD CHLORIDE 0.9% 250 ML IV* (13:49)
[2017-08-12] MEDS: CEFTRIAXONE 1 GM/50 ML (PMX) 50 ML IVPB (17:59)
[2017-08-12] MEDS ORDERED: SODIUM CHLORIDE 0.9% 1L BAG IV (18:00)
[2017-08-13] MEDS: LACTULOSE 30ML CUP PO ×4 (01:35→17:21)
[2017-08-13] MEDS: PANTOPRAZOLE 40 MG INJ IV ×2 (06:08→17:21)
[2017-08-13] MEDS: ALBUMIN HUMAN 25% 100 ML IV (06:08)
[2017-08-13] MEDS: LEVOTHYROXINE 75 MCG TAB PO (06:09)
[2017-08-13 07:01] LABS: INR 1.42; PROTIME 17.6 Sec (11.9-14.9); PT RATIO 1.4
[2017-08-13 07:23] LABS: VANCOMYCIN,RANDOM 7.6 ug/ml
[2017-08-13 08:07] LABS: INR 1.41; PROTIME 17.5 Sec (11.9-14.9); PT RATIO 1.4
[2017-08-13 08:23] LABS: AMMONIA 43 umol/l (9-30)
[2017-08-13] MEDS: MIDODRINE 5 MG TAB PO ×3 (09:28→17:21)
[2017-08-13] MEDS: RIFAXIMIN 550 MG TAB PO ×2 (09:28→21:55)
[2017-08-13] MEDS: ASPIRIN 325 MG TAB PO (09:28)
[2017-08-13] MEDS: CALCIUM/VITAMIN D (250/125) TAB PO ×2 (09:29→21:55)
[2017-08-13] MEDS: MULTIVIT/CA CARB/B CMPLX/FA TAB PO (09:29)
[2017-08-13] MEDS: AMIODARONE 200 MG TAB PO (09:30)
[2017-08-13] MEDS ORDERED: VANCOMYCIN 1.5 GM in SOD CHLORIDE 0.9% 250 ML IVPB (11:30)
[2017-08-13] MEDS: VANCOMYCIN 1.25 GM in SOD CHLORIDE 0.9% 250 ML IVPB (12:09)
[2017-08-13 13:02] LABS: ADD MAN DIFF? NO
[2017-08-13 13:06] LABS: ABNORMAL IP MESSAGE 1; BASOPHILS % 0.1 % (0.0-2.0); EOSINOPHILS # 0.1 10^3/ul (0.0-0.5); EOSINOPHILS % 0.5 % (0.0-7.0); HEMATOCRIT 24.4 % (42.0-52.0); LYMPHOCYTES # 1.3 10^3/ul (0.8-2.9); LYMPHOCYTES % 6.3 % (15.0-51.0); MEAN CORPUSCULAR HEMOGLOBIN 29.4 pg (29.0-33.0); MEAN CORPUSCULAR HGB CONC 32.8 g/dl (32.0-37.0); MEAN CORPUSCULAR VOLUME 89.7 fl (82.0-101.0); MONOCYTE # 1.9 10^3/ul (0.3-0.9); MONOCYTES % 8.9 % (0.0-11.0); NEUTROPHIL # 17.6 10^3/ul (1.6-7.5); NEUTROPHILS % 83.5 % (39.0-77.0); PLATELET COUNT 153 10^3/UL (140-415); POSITIVE DIFF @See below; RED BLOOD COUNT 2.72 10^6/ul (4.70-6.10); RED CELL DISTRIBUTION WIDTH 22.1 % (11.5-14.5)
[2017-08-13 13:11] LABS: ANION GAP 22 (8-16); BLOOD UREA NITROGEN 62 mg/dl (7-20); CALCIUM 9.3 mg/dl (8.4-10.2); CARBON DIOXIDE 22 mmol/L (21-31); CHLORIDE 106 mmol/L (97-110); GLUCOSE 111 mg/dl (70-220); POTASSIUM 3.7 mmol/L (3.5-5.1); SODIUM 146 mmol/L (135-144)
[2017-08-13] MEDS: CEFTRIAXONE 1 GM/50 ML (PMX) 50 ML IVPB (17:21)
[2017-08-13 17:29] LABS: ADD UMIC YES; UR ASCORBIC ACID NEGATIVE (NEGATIVE); UR BACTERIA FEW /HPF (NONE SEEN); UR BILIRUBIN (Dip) NEGATIVE (NEGATIVE); UR BLOOD (Dip) 2+ mg/dL (NEGATIVE); UR CLARITY SLIGHTLY CLOUDY (CLEAR); UR COLOR AMBER (YELLOW); UR GLUCOSE (Dip) NEGATIVE (NEGATIVE); UR KETONES (Dip) NEGATIVE (NEGATIVE); UR LEUKOCYTE ESTERASE (Dip) NEGATIVE Leu/ul (NEGATIVE); UR NITRITE (Dip) NEGATIVE (NEGATIVE); UR RBC 2 /HPF (0-5); UR SPECIFIC GRAVITY (Dip) 1.017 (1.003-1.030); UR TOTAL PROTEIN (Dip) 1+ mg/dl (NEGATIVE); UR UROBILINOGEN (Dip) 1+ mg/dL (NEGATIVE); UR WBC 8 /HPF (0-5)
[2017-08-13] MEDS: ALBUMIN HUMAN 25% 50 ML IV (20:39)
[2017-08-13] MEDS: HEPARIN 1000 UNITS/ML 10 ML INJ CATHETER (23:28)
[2017-08-14] MEDS: LACTULOSE 30ML CUP PO ×5 (00:18→23:56)
[2017-08-14] MEDS: PANTOPRAZOLE 40 MG INJ IV ×2 (05:33→17:46)
[2017-08-14] MEDS: LEVOTHYROXINE 75 MCG TAB PO (05:48)
[2017-08-14 08:56] LABS: ADD MAN DIFF? NO
[2017-08-14] MEDS: MIDODRINE 5 MG TAB PO ×3 (09:00→17:46)
[2017-08-14] MEDS: AMIODARONE 200 MG TAB PO (09:00)
[2017-08-14 09:05] LABS: ABNORMAL IP MESSAGE 1; BASOPHILS % 0.2 % (0.0-2.0); EOSINOPHILS # 0.5 10^3/ul (0.0-0.5); EOSINOPHILS % 2.9 % (0.0-7.0); HEMATOCRIT 25.6 % (42.0-52.0); HEMOGLOBIN 8.5 g/dl (14.0-18.0); LYMPHOCYTES # 1.2 10^3/ul (0.8-2.9); LYMPHOCYTES % 7.3 % (15.0-51.0); MEAN CORPUSCULAR HEMOGLOBIN 29.1 pg (29.0-33.0); MEAN CORPUSCULAR HGB CONC 33.2 g/dl (32.0-37.0); MEAN CORPUSCULAR VOLUME 87.7 fl (82.0-101.0); MEAN PLATELET VOLUME 11.5 fl (7.4-10.4); MONOCYTE # 1.6 10^3/ul (0.3-0.9); MONOCYTES % 9.4 % (0.0-11.0); NEUTROPHIL # 13.1 10^3/ul (1.6-7.5); NEUTROPHILS % 79.5 % (39.0-77.0); PLATELET COUNT 161 10^3/UL (140-415); POSITIVE DIFF @See below; RED BLOOD COUNT 2.92 10^6/ul (4.70-6.10); RED CELL DISTRIBUTION WIDTH 21.7 % (11.5-14.5)
[2017-08-14 09:05] LABS: WHITE BLOOD COUNT 16.5 10^3/ul (4.8-10.8)
[2017-08-14 09:26] LABS: INR 1.52; PROTIME 18.6 Sec (11.9-14.9); PT RATIO 1.5
[2017-08-14 09:27] LABS: PARTIAL THROMBOPLASTIN TIME 41.7 Sec (25.0-35.0)
[2017-08-14 09:30] LABS: AMMONIA 46 umol/l (9-30)
[2017-08-14 09:49] LABS: ANION GAP 15 (8-16); BLOOD UREA NITROGEN 37 mg/dl (7-20); CALCIUM 8.6 mg/dl (8.4-10.2); CARBON DIOXIDE 25 mmol/L (21-31); CHLORIDE 106 mmol/L (97-110); CREATININE 2.52 mg/dl (0.61-1.24); GLUCOSE 90 mg/dl (70-220); POTASSIUM 3.2 mmol/L (3.5-5.1); SODIUM 143 mmol/L (135-144)
[2017-08-14 09:55] LABS: THROMBIN TIME 18.1 SEC (13.8-19.1)
[2017-08-14] MEDS: SOD CHLORIDE 0.9% 250 ML IV* (10:48)
[2017-08-14] MEDS: ASPIRIN 325 MG TAB PO (10:57)
[2017-08-14] MEDS: RIFAXIMIN 550 MG TAB PO ×2 (10:57→20:38)
[2017-08-14] MEDS: CALCIUM/VITAMIN D (250/125) TAB PO ×2 (10:57→20:38)
[2017-08-14] MEDS: MULTIVIT/CA CARB/B CMPLX/FA TAB PO (10:58)
[2017-08-14] MEDS ORDERED: POTASSIUM CHLORIDE 50 ML IVPB (11:00)
[2017-08-14] MEDS: POTASSIUM CHLORIDE 20 MEQ /SW 100 ML IVPB (13:22)
[2017-08-14] MEDS: CEFTRIAXONE 1 GM/50 ML (PMX) 50 ML IVPB (17:47)
[2017-08-14] MEDS ORDERED: HEPARIN 1000 UNITS/ML 10 ML INJ CATHETER (18:30)
[2017-08-14] MEDS ORDERED: ALBUMIN HUMAN 25% 50 ML IV (18:30)
[2017-08-15 02:05] LABS: TYPE AND SCREEN 1 1
[2017-08-15] MEDS: PANTOPRAZOLE 40 MG INJ IV ×2 (05:46→17:41)
[2017-08-15] MEDS: LACTULOSE 30ML CUP PO ×3 (05:47→17:42)
[2017-08-15] MEDS: LEVOTHYROXINE 75 MCG TAB PO (05:47)
[2017-08-15 06:23] LABS: ADD MAN DIFF? NO
[2017-08-15 06:38] LABS: WHITE BLOOD COUNT 14.3 10^3/ul (4.8-10.8)
[2017-08-15 06:38] LABS: ABNORMAL IP MESSAGE 1; BASOPHILS % 0.3 % (0.0-2.0); EOSINOPHILS # 0.1 10^3/ul (0.0-0.5); EOSINOPHILS % 0.4 % (0.0-7.0); HEMATOCRIT 26.2 % (42.0-52.0); HEMOGLOBIN 8.9 g/dl (14.0-18.0); LYMPHOCYTES # 1.1 10^3/ul (0.8-2.9); LYMPHOCYTES % 7.9 % (15.0-51.0); MEAN CORPUSCULAR VOLUME 88.2 fl (82.0-101.0); MEAN PLATELET VOLUME 11.5 fl (7.4-10.4); MONOCYTE # 1.5 10^3/ul (0.3-0.9); MONOCYTES % 10.7 % (0.0-11.0); NEUTROPHIL # 11.4 10^3/ul (1.6-7.5); NEUTROPHILS % 80.1 % (39.0-77.0); PLATELET COUNT 150 10^3/UL (140-415); POSITIVE DIFF @See below; RED BLOOD COUNT 2.97 10^6/ul (4.70-6.10)
[2017-08-15 06:54] LABS: INR 1.56; PARTIAL THROMBOPLASTIN TIME 40.1 Sec (25.0-35.0); PT RATIO 1.5
[2017-08-15 07:07] LABS: ANION GAP 20 (8-16); BLOOD UREA NITROGEN 41 mg/dl (7-20); CALCIUM 8.8 mg/dl (8.4-10.2); CARBON DIOXIDE 23 mmol/L (21-31); CHLORIDE 104 mmol/L (97-110); CREATININE 3.13 mg/dl (0.61-1.24); GLUCOSE 88 mg/dl (70-220); POTASSIUM 3.5 mmol/L (3.5-5.1); SODIUM 143 mmol/L (135-144)
[2017-08-15 07:11] LABS: VANCOMYCIN,RANDOM 12.5 ug/ml
[2017-08-15] MEDS: ASPIRIN 325 MG TAB PO (08:22)
[2017-08-15] MEDS: RIFAXIMIN 550 MG TAB PO ×2 (08:23→20:08)
[2017-08-15] MEDS: MULTIVIT/CA CARB/B CMPLX/FA TAB PO (08:23)
[2017-08-15] MEDS: AMIODARONE 200 MG TAB PO (08:23)
[2017-08-15] MEDS: CALCIUM/VITAMIN D (250/125) TAB PO ×2 (08:23→20:08)
[2017-08-15] MEDS: MIDODRINE 5 MG TAB PO ×3 (08:28→17:42)
[2017-08-15] MEDS: SOD CHLORIDE 0.9% 250 ML IV* ×2 (11:59→12:00)
[2017-08-15] MEDS: VANCOMYCIN 1 GM 250 ML IVPB (12:38)
[2017-08-15 15:41] LABS: PHOSPHORUS 3.7 mg/dl (2.5-4.9)
[2017-08-15 15:41] LABS: MAGNESIUM 2.2 mg/dl (1.7-2.5)
[2017-08-16] MEDS: PANTOPRAZOLE 40 MG INJ IV ×2 (05:53→18:26)
[2017-08-16] MEDS: LACTULOSE 30ML CUP PO ×4 (06:00→18:00)
[2017-08-16] MEDS: LEVOTHYROXINE 75 MCG TAB PO (06:00)
[2017-08-16] MEDS: CALCIUM/VITAMIN D (250/125) TAB PO ×2 (09:00→20:09)
[2017-08-16] MEDS: RIFAXIMIN 550 MG TAB PO ×2 (09:00→20:09)
[2017-08-16] MEDS: ASPIRIN 325 MG TAB PO (09:00)
[2017-08-16] MEDS: MULTIVIT/CA CARB/B CMPLX/FA TAB PO (09:00)
[2017-08-16] MEDS: AMIODARONE 200 MG TAB PO (09:00)
[2017-08-16] MEDS: MIDODRINE 5 MG TAB PO ×4 (09:00→18:25)
[2017-08-16] MEDS: ALBUMIN HUMAN 25% 100 ML IV ×3 (10:29→18:34)
[2017-08-16 10:56] LABS: ADD MAN DIFF? NO
[2017-08-16 10:58] LABS: WHITE BLOOD COUNT 14.7 10^3/ul (4.8-10.8)
[2017-08-16 10:58] LABS: BASOPHIL # 0.1 10^3/ul (0.0-0.1); BASOPHILS % 0.4 % (0.0-2.0); EOSINOPHILS # 0.3 10^3/ul (0.0-0.5); EOSINOPHILS % 1.7 % (0.0-7.0); HEMATOCRIT 23.9 % (42.0-52.0); HEMOGLOBIN 7.9 g/dl (14.0-18.0); LYMPHOCYTES # 1.1 10^3/ul (0.8-2.9); LYMPHOCYTES % 7.7 % (15.0-51.0); MEAN CORPUSCULAR HEMOGLOBIN 29.4 pg (29.0-33.0); MEAN CORPUSCULAR HGB CONC 33.1 g/dl (32.0-37.0); MEAN CORPUSCULAR VOLUME 88.8 fl (82.0-101.0); MEAN PLATELET VOLUME 11.6 fl (7.4-10.4); MONOCYTE # 1.4 10^3/ul (0.3-0.9); MONOCYTES % 9.2 % (0.0-11.0); NEUTROPHIL # 11.8 10^3/ul (1.6-7.5); NEUTROPHILS % 80.6 % (39.0-77.0); PLATELET COUNT 165 10^3/UL (140-415); RED BLOOD COUNT 2.69 10^6/ul (4.70-6.10)
[2017-08-16 11:18] LABS: AMMONIA 13 umol/l (9-30)
[2017-08-16 11:24] LABS: INR 1.52; PROTIME 18.6 Sec (11.9-14.9); PT RATIO 1.5
[2017-08-16 11:28] LABS: ANION GAP 18 (8-16); BLOOD UREA NITROGEN 32 mg/dl (7-20); CALCIUM 8.6 mg/dl (8.4-10.2); CARBON DIOXIDE 26 mmol/L (21-31); CHLORIDE 102 mmol/L (97-110); CREATININE 2.95 mg/dl (0.61-1.24); GLUCOSE 79 mg/dl (70-220); POTASSIUM 3.6 mmol/L (3.5-5.1); SODIUM 142 mmol/L (135-144)
[2017-08-16] MEDS: LIDOCAINE 1% (MPF) 5 ML VIAL (12:14)
[2017-08-16 12:46] LABS: HEMATOCRIT 23.1 % (42.0-52.0); HEMOGLOBIN 7.6 g/dl (14.0-18.0)
[2017-08-16] MEDS ORDERED: SOD CHLORIDE 0.9% 500 ML (14:34)
[2017-08-16] MEDS: CEFAZOLIN 1 GM/50 ML (PMX) 50 ML IVPB (14:34)
[2017-08-16 15:04] LABS: TYPE AND SCREEN 1 1
[2017-08-16] MEDS: MIDAZOLAM 1 MG/ML 2 ML INJ (15:40)
[2017-08-16] MEDS: LIDOCAINE 1%/EPI 30 ML INJ (16:35)
[2017-08-16] MEDS: PROPOFOL 20 ML (16:40)
[2017-08-16] MEDS: HEPARIN 1000 UNITS/ML 10 ML INJ (16:40)
[2017-08-16] MEDS ORDERED: SODIUM CHLORIDE 0.9% 1L BAG IV (18:00)
[2017-08-17] MEDS: ALBUMIN HUMAN 25% 100 ML IV ×2 (04:19→10:12)
[2017-08-17] MEDS: LACTULOSE 30ML CUP PO ×4 (06:00→18:00)
[2017-08-17] MEDS: LEVOTHYROXINE 75 MCG TAB PO (06:30)
[2017-08-17] MEDS: PANTOPRAZOLE 40 MG INJ IV ×2 (06:30→18:45)
[2017-08-17 06:59] LABS: ADD MAN DIFF? NO
[2017-08-17 07:08] LABS: WHITE BLOOD COUNT 13.9 10^3/ul (4.8-10.8)
[2017-08-17 07:08] LABS: BASOPHILS % 0.3 % (0.0-2.0); EOSINOPHILS # 0.5 10^3/ul (0.0-0.5); EOSINOPHILS % 3.7 % (0.0-7.0); HEMATOCRIT 22.5 % (42.0-52.0); HEMOGLOBIN 7.5 g/dl (14.0-18.0); LYMPHOCYTES # 1.1 10^3/ul (0.8-2.9); MEAN CORPUSCULAR HEMOGLOBIN 29.4 pg (29.0-33.0); MEAN CORPUSCULAR HGB CONC 33.3 g/dl (32.0-37.0); MEAN CORPUSCULAR VOLUME 88.2 fl (82.0-101.0); MONOCYTE # 1.4 10^3/ul (0.3-0.9); MONOCYTES % 9.7 % (0.0-11.0); NEUTROPHIL # 10.8 10^3/ul (1.6-7.5); NEUTROPHILS % 77.8 % (39.0-77.0); PLATELET COUNT 155 10^3/UL (140-415); RED BLOOD COUNT 2.55 10^6/ul (4.70-6.10); RED CELL DISTRIBUTION WIDTH 20.4 % (11.5-14.5)
[2017-08-17 07:35] LABS: ANION GAP 16 (8-16); BLOOD UREA NITROGEN 34 mg/dl (7-20); CALCIUM 8.3 mg/dl (8.4-10.2); CARBON DIOXIDE 24 mmol/L (21-31); CHLORIDE 100 mmol/L (97-110); CREATININE 3.17 mg/dl (0.61-1.24); GLUCOSE 83 mg/dl (70-220); POTASSIUM 3.4 mmol/L (3.5-5.1); SODIUM 137 mmol/L (135-144)
[2017-08-17] MEDS: MIDODRINE 5 MG TAB PO ×3 (09:00→18:45)
[2017-08-17] MEDS: ASPIRIN 325 MG TAB PO (10:10)
[2017-08-17] MEDS: MULTIVIT/CA CARB/B CMPLX/FA TAB PO (10:10)
[2017-08-17] MEDS: CALCIUM/VITAMIN D (250/125) TAB PO ×2 (10:10→22:33)
[2017-08-17] MEDS: RIFAXIMIN 550 MG TAB PO ×2 (10:10→22:33)
[2017-08-17] MEDS: AMIODARONE 200 MG TAB PO (10:11)
[2017-08-17] MEDS: ALBUMIN HUMAN 25% 50 ML IV (18:15)
[2017-08-17] MEDS: HEPARIN 1000 UNITS/ML 10 ML INJ CATHETER (18:22)
[2017-08-18] MEDS: LACTULOSE 30ML CUP PO ×4 (06:00→17:46)
[2017-08-18] MEDS: PANTOPRAZOLE 40 MG INJ IV ×2 (06:44→17:38)
[2017-08-18] MEDS: MULTIVIT/CA CARB/B CMPLX/FA TAB PO (08:27)
[2017-08-18] MEDS: ASPIRIN 325 MG TAB PO (08:27)
[2017-08-18] MEDS: CALCIUM/VITAMIN D (250/125) TAB PO ×2 (08:29→20:53)
[2017-08-18] MEDS: RIFAXIMIN 550 MG TAB PO ×2 (08:29→20:53)
[2017-08-18] MEDS: LEVOTHYROXINE 75 MCG TAB PO (08:29)
[2017-08-18] MEDS: AMIODARONE 200 MG TAB PO (08:29)
[2017-08-18] MEDS: MIDODRINE 5 MG TAB PO (09:00)
[2017-08-18 10:57] LABS: ADD MAN DIFF? NO
[2017-08-18] MEDS ORDERED: ACETAMINOPHEN 325 MG TAB PO (11:00)
[2017-08-18 11:03] LABS: WHITE BLOOD COUNT 14.7 10^3/ul (4.8-10.8)
[2017-08-18 11:03] LABS: BASOPHILS % 0.3 % (0.0-2.0); EOSINOPHILS % 0.3 % (0.0-7.0); HEMOGLOBIN 8.3 g/dl (14.0-18.0); LYMPHOCYTES # 1.2 10^3/ul (0.8-2.9); LYMPHOCYTES % 8.1 % (15.0-51.0); MEAN CORPUSCULAR HEMOGLOBIN 29.5 pg (29.0-33.0); MEAN CORPUSCULAR HGB CONC 33.2 g/dl (32.0-37.0); MEAN PLATELET VOLUME 10.6 fl (7.4-10.4); MONOCYTE # 1.4 10^3/ul (0.3-0.9); MONOCYTES % 9.5 % (0.0-11.0); NEUTROPHIL # 11.9 10^3/ul (1.6-7.5); NEUTROPHILS % 81.2 % (39.0-77.0); PLATELET COUNT 154 10^3/UL (140-415); RED BLOOD COUNT 2.81 10^6/ul (4.70-6.10); RED CELL DISTRIBUTION WIDTH 19.8 % (11.5-14.5)
[2017-08-18 11:18] LABS: ANION GAP 17 (8-16); BLOOD UREA NITROGEN 18 mg/dl (7-20); CALCIUM 8.2 mg/dl (8.4-10.2); CARBON DIOXIDE 28 mmol/L (21-31); CHLORIDE 96 mmol/L (97-110); CREATININE 2.45 mg/dl (0.61-1.24); GLUCOSE 103 mg/dl (70-220); POTASSIUM 3.2 mmol/L (3.5-5.1); SODIUM 138 mmol/L (135-144)
[2017-08-18] MEDS: HYDROCODONE/APAP (5/325) TAB PO ×2 (11:27→20:53)
[2017-08-18 11:55] LABS: AMMONIA 39 umol/l (9-30)
[2017-08-18] MEDS: MIDODRINE 2.5 MG TAB PO ×2 (13:19→17:40)
[2017-08-18] MEDS: POTASSIUM CHLORIDE (SR) 20 MEQ TAB PO (17:39)
[2017-08-19] MEDS: LACTULOSE 30ML CUP PO ×5 (00:15→17:27)
[2017-08-19] MEDS: LEVOTHYROXINE 75 MCG TAB PO (06:27)
[2017-08-19] MEDS: PANTOPRAZOLE 40 MG INJ IV ×2 (06:27→17:27)
[2017-08-19 07:23] LABS: ALANINE AMINOTRANSFERASE 40 IU/L (13-69); ALBUMIN/GLOBULIN RATIO 0.76; ALKALINE PHOSPHATASE 84 IU/L (42-121); ANION GAP 17 (8-16); ASPARTATE AMINO TRANSFERASE 109 IU/L (15-46); BILIRUBIN,INDIRECT 1.8 mg/dl (0-1.1); BILIRUBIN,TOTAL 2.3 mg/dl (0.2-1.3); BLOOD UREA NITROGEN 26 mg/dl (7-20); CALCIUM 8.3 mg/dl (8.4-10.2); CARBON DIOXIDE 27 mmol/L (21-31); CHLORIDE 99 mmol/L (97-110); CREATININE 3.26 mg/dl (0.61-1.24); GLUCOSE 87 mg/dl (70-220); POTASSIUM 3.9 mmol/L (3.5-5.1); SODIUM 139 mmol/L (135-144); TOTAL PROTEIN 6.9 g/dl (6.1-8.1)
[2017-08-19] MEDS: AMIODARONE 200 MG TAB PO (09:22)
[2017-08-19] MEDS: CALCIUM/VITAMIN D (250/125) TAB PO ×2 (09:22→21:43)
[2017-08-19] MEDS: RIFAXIMIN 550 MG TAB PO ×2 (09:23→21:43)
[2017-08-19] MEDS: MULTIVIT/CA CARB/B CMPLX/FA TAB PO (09:23)
[2017-08-19] MEDS: ASPIRIN 325 MG TAB PO (09:23)
[2017-08-19] MEDS: MIDODRINE 2.5 MG TAB PO (09:26)
[2017-08-19] MEDS: MIDODRINE 5 MG TAB PO ×2 (15:07→17:00)
[2017-08-19] MEDS ORDERED: ALBUMIN HUMAN 25% 50 ML IV (16:30)
[2017-08-19] MEDS ORDERED: HEPARIN 1000 UNITS/ML 10 ML INJ CATHETER (16:30)
[2017-08-20] MEDS: LACTULOSE 30ML CUP PO ×3 (06:00→12:00)
[2017-08-20] MEDS: PANTOPRAZOLE 40 MG INJ IV (06:47)
[2017-08-20] MEDS: LEVOTHYROXINE 75 MCG TAB PO (06:47)
[2017-08-20] MEDS: MIDODRINE 5 MG TAB PO ×2 (08:41→13:15)
[2017-08-20] MEDS: MULTIVIT/CA CARB/B CMPLX/FA TAB PO (08:42)
[2017-08-20] MEDS: AMIODARONE 200 MG TAB PO (08:42)
[2017-08-20] MEDS: RIFAXIMIN 550 MG TAB PO (08:42)
[2017-08-20] MEDS: ASPIRIN 325 MG TAB PO (08:42)
[2017-08-20] MEDS: CALCIUM/VITAMIN D (250/125) TAB PO (08:42)
[2017-08-20] MEDS: ALBUMIN HUMAN 25% 50 ML IV ×2 (10:16→10:18)
[2017-08-20] MEDS: HEPARIN 1000 UNITS/ML 10 ML INJ CATHETER ×2 (12:22→12:40)
[2017-08-22 11:21] LABS: SMOOTH MUSCLE AB SCREEN NEGATIVE (NEGATIVE)
[2017-08-22 15:07] LABS: ALPHA 1 ANTITRYPSIN 111 mg/dL (83-199); CERULOPLASMIN 12 mg/dL (18-36)
[2017-08-22 20:17] LABS: ANA SCREEN POSITIVE (NEGATIVE)
[2017-08-23 15:01] LABS: ANA PATTERN DUAL
== END 2017-08-20 15:20 | disposition home or self-care (01) | DRG 811 ==
LOC: ICU 11:58 → TEL 08-12 00:42 → E/R 09:13 → MS1 08-05 16:00
PROC: 30233N1 Transfusion of Nonautologous Red Blood Cells into Peripheral Vein, Percutaneous Approach (ICD-10-PCS; 2017-08-02)
PROC: 30233K1 Transfusion of Nonautologous Frozen Plasma into Peripheral Vein, Percutaneous Approach (ICD-10-PCS; 2017-08-03)
PROC: 06HM33Z Insertion of Infusion Device into Right Femoral Vein, Percutaneous Approach (ICD-10-PCS; 2017-08-04)
PROC: 0W9G3ZZ Drainage of Peritoneal Cavity, Percutaneous Approach (ICD-10-PCS; 2017-08-04)
PROC: 5A1D70Z Performance of Urinary Filtration, Intermittent, Less than 6 Hours Per Day (ICD-10-PCS; 2017-08-04)
PROC: 0W9G3ZX Drainage of Peritoneal Cavity, Percutaneous Approach, Diagnostic (ICD-10-PCS; principal; 2017-08-09)
PROC: 0W9G3ZZ Drainage of Peritoneal Cavity, Percutaneous Approach (ICD-10-PCS; 2017-08-16)
PROC: 0JH63XZ Insertion of Tunneled Vascular Access Device into Chest Subcutaneous Tissue and Fascia, Percutaneous Approach (ICD-10-PCS; 2017-08-16)
PROC: 02H633Z Insertion of Infusion Device into Right Atrium, Percutaneous Approach (ICD-10-PCS; 2017-08-16)
PROC: B214YZZ Fluoroscopy of Right Heart using Other Contrast (ICD-10-PCS; 2017-08-16)
DX: D62 Acute posthemorrhagic anemia (principal); K66.1 Hemoperitoneum; K72.00 Acute and subacute hepatic failure without coma; K76.7 Hepatorenal syndrome; N17.0 Acute kidney failure with tubular necrosis; D68.32 Hemorrhagic disorder due to extrinsic circulating anticoagulants; I95.3 Hypotension of hemodialysis; E87.2 Acidosis; K76.6 Portal hypertension; K56.609 Unspecified intestinal obstruction, unspecified as to partial versus complete obstruction; I95.81 Postprocedural hypotension; I48.0 Paroxysmal atrial fibrillation; E87.5 Hyperkalemia; K70.31 Alcoholic cirrhosis of liver with ascites; T45.515A Adverse effect of anticoagulants, initial encounter; D63.1 Anemia in chronic kidney disease; E03.9 Hypothyroidism, unspecified; I25.10 Atherosclerotic heart disease of native coronary artery without angina pectoris; I12.9 Hypertensive chronic kidney disease with stage 1 through stage 4 chronic kidney disease, or unspecified chronic kidney disease; N18.9 Chronic kidney disease, unspecified; Z95.0 Presence of cardiac pacemaker; Z79.01 Long term (current) use of anticoagulants
CPT/HCPCS: 36430; 36558; 36600; 70450; 71045; 74018; 74176; 74177; 74250; 76700; 76942; 80048; 80053; 80202; 81001; 81003; 82103; 82140; 82390; 82525; 82550; 82553; 82570; 82728; 82803; 82962; 83010; 83605; 83735; 83935; 83970; 84100; 84155; 84300; 84484; 85014; 85018; 85025; 85049; 85362; 85378; 85384; 85610; 85670; 85730; 86038; 86255; 86644; 86704; 86706; 86709; 86803; 86850; 86900; 86901; 86920; 87040; 87070; 87075; 87081; 87086; 87102; 87116; 87340; 88104; 88305; 89051; 90935; 93005; 96374; 96375; 96376; 97116; 97161; 99291-25